=== PATIENT | female | born 1955 | race Hispanic/Latino ===

== ENCOUNTER 2017-09-22 03:16 | Emergency (ER) | payer BC ==
[2017-09-22] MEDS ORDERED: FAMOTIDINE 20MG TAB 20 MG TAB ONE (03:28)
[2017-09-22] MEDS ORDERED: DIPHENHYDRAMINE HCL 25 MG CAPSULE ONE (03:28)
== END 2017-09-22 04:25 | disposition home or self-care (01) ==
LOC: EDH 03:16
DX: L25.9 Unspecified contact dermatitis, unspecified cause (principal); E11.9 Type 2 diabetes mellitus without complications; I10 Essential (primary) hypertension
CPT/HCPCS: 99283; Q0163